=== PATIENT | female | born 1965 | race African-American/Black ===

== ENCOUNTER 2017-07-27 11:43 | Outpatient (CLI) | payer OTHER | END 2017-07-27 17:00 | disposition home or self-care (01) | LOC: MAMO-SONO 11:43 | DX: Z12.31 Encounter for screening mammogram for malignant neoplasm of breast (principal); Z87.898 Personal history of other specified conditions; N60.99 Unspecified benign mammary dysplasia of unspecified breast ==

== ENCOUNTER 2019-07-12 09:47 | Outpatient (CLI) | payer OTHER | END 2019-07-12 09:58 | disposition home or self-care (01) | LOC: MRI 09:47 | DX: M17.12 Unilateral primary osteoarthritis, left knee (principal) | CPT/HCPCS: 73721 ==

== ENCOUNTER 2019-07-27 07:54 | Outpatient (CLI) | payer OTHER | END 2019-07-27 08:15 | disposition home or self-care (01) | LOC: MAMO-SONO 07:54 | DX: Z12.31 Encounter for screening mammogram for malignant neoplasm of breast (principal); Z87.898 Personal history of other specified conditions; R13.13 Dysphagia, pharyngeal phase; E04.1 Nontoxic single thyroid nodule; N60.99 Unspecified benign mammary dysplasia of unspecified breast ==

== ENCOUNTER 2021-02-11 12:45 | Outpatient (CLI) | payer OTHER | END 2021-02-11 12:55 | disposition home or self-care (01) | LOC: MAMO-SONO 12:45 | PROVIDERS: ATTEND General Practice | DX: D24.1 Benign neoplasm of right breast (principal); Z12.31 Encounter for screening mammogram for malignant neoplasm of breast; I10 Essential (primary) hypertension; J43.1 Panlobular emphysema ==

== ENCOUNTER 2021-05-10 09:00 | Outpatient (CLI) | payer OTHER | END 2021-05-10 09:06 | disposition home or self-care (01) | LOC: RAD 09:00 | PROVIDERS: ATTEND General Practice | DX: M25.571 Pain in right ankle and joints of right foot (principal) ==

== ENCOUNTER 2021-07-11 07:15 | Outpatient (CLI) | payer OTHER | END 2021-07-11 07:20 | disposition home or self-care (01) | LOC: MRI 07:15 | PROVIDERS: ATTEND General Practice | DX: M25.561 Pain in right knee (principal) | CPT/HCPCS: 73721 ==

== ENCOUNTER 2022-07-14 07:11 | Outpatient (CLI) | payer OTHER | END 2022-07-14 07:15 | disposition home or self-care (01) | LOC: MAMO-SONO 07:11 | DX: Z12.31 Encounter for screening mammogram for malignant neoplasm of breast (principal); J40 Bronchitis, not specified as acute or chronic ==

== ENCOUNTER 2022-08-25 07:21 | Outpatient (CLI) | payer OTHER | END 2022-08-25 07:42 | disposition home or self-care (01) | LOC: TOM 07:21 | PROVIDERS: ATTEND General Practice | DX: J43.1 Panlobular emphysema (principal) ==